=== PATIENT | female | born 1990 | race Caucasian/White ===

== ENCOUNTER 2016-07-03 02:22 | Inpatient (IN) | payer MEDICAID, OTHER ==
[~2016-07-03] VITALS: Ht 157.5 cm; Wt 53.4 kg
[~2016-07-03 02:22] MED LIST: PHEN12.5 PO; Z.0.BCPILL PO
[2016-07-03 03:33] VITALS: BP 135/76; PULSE 94; RESP 18; TEMP 98.2; O2SAT 97
[2016-07-03 03:38] VITALS: BP 135/76; PULSE 94; RESP 18; O2SAT 97
[2016-07-03 03:45] LABS: AUTOMATED NEUTROPHIL # 8.5 TH/MM3 (1.8-7.7); BASOPHIL % 0.4 % (0.0-2.0); EOSINOPHIL % 0.1 % (0.0-4.0); HEMATOCRIT 34.8 % (35.0-46.0); HEMO FLAGS DIFF FINAL; LYMPH % 9.9 % (9.0-44.0); MEAN CELL VOLUME 93.6 FL (80.0-100.0); MEAN CORPUSCULAR HEMOGLOBIN 32.4 PG (27.0-34.0); MEAN CORPUSCULAR HGB CONC 34.6 % (32.0-36.0); MONO % 5.2 % (0.0-8.0); NEUT % 84.4 % (16.0-70.0); PLATELET COUNT 252 TH/MM3 (150-450); RED BLOOD COUNT 3.72 MIL/MM3 (4.00-5.30); RED CELL DISTRIBUTION WIDTH 12.2 % (11.6-17.2)
[2016-07-03] MEDS ORDERED: BUPR300T PO (03:56)
[2016-07-03] MEDS ORDERED: XYRE500S (03:56)
[2016-07-03] MEDS ORDERED: FLUO40CA PO (03:56)
[2016-07-03] MEDS ORDERED: MODA100T9 PO (03:56)
[2016-07-03] MEDS ORDERED: OFFICE MEDICATION (03:56)
[2016-07-03] MEDS ORDERED: NUVI150T2 PO (03:56)
[2016-07-03 04:12] LABS: ANION GAP 8 MEQ/L (5-15); BICARBONATE 25.4 MEQ/L (21.0-32.0); BLOOD UREA NITROGEN 18 MG/DL (7-18); CHLORIDE 106 MEQ/L (98-107); GLOMERULAR FILTRATION RATE 72 ML/MIN (>89); POTASSIUM 4.1 MEQ/L (3.5-5.1); SODIUM (NA) 139 MEQ/L (136-145)
[2016-07-03 04:14] LABS: AMPHETAMINE, URINE NEG (NEG); BARBITURATES, URINE NEG (NEG); COCAINE, URINE NEG (NEG)
[2016-07-03 04:22] LABS: ACETAMINOPHEN LESS THAN 2.0 MCG/ML (10.0-30.0)
--- NOTE | 2016-07-03 05:09 | PD ---
HPI Chief Complaint: Psychiatric Symptoms Time Seen by Provider: 03:31 Travel History International Travel<30 days: No Contact w/Intl Traveler<30days: No Traveled to known affect area: No History of Present Illness HPI 25-year-old female presents under Gonzalez act for abnormal behavior. Patient cannot provide significant history here. Family arrived and states that she has been off of her home medications and been with her boyfriend. Patient denies specific complaints but is difficult to obtain history from [facility] Past Medical History Anxiety: Yes Depression: Yes Diminished Hearing: No Medical other: Yes (narcolepsy) Immunizations Current: Yes ?: Not Past Surgical History Oral Surgery: Yes (wisdom teeth removed) Social History Alcohol Use: No Tobacco Use: No Substance Use: Yes (marijuana) Allergies-Medications (Allergen,Severity, Reaction): Coded Allergies: Amoxicillin (Verified Allergy, Severe, EYES SWELL, 07/03/16) Cultivated Oat Pollen (Verified Allergy, Mild, 07/03/16) Reported Meds & Prescriptions Reported Meds & Active Scripts Active Reported Xyrem Liq (Sodium Oxybate Liq) 500 Mg/Ml Jayna Nuvigil (Armodafinil) 150 Mg Tab 150 Mg PO DAILY Fluoxetine (Fluoxetine HCl) 40 Mg Cap 40 Cap PO DAILY Modafinil 100 Mg Tab 100 Mg PO DAILY Bupropion HCl ER 24 HR (Bupropion HCl) 300 Mg Tab 300 Mg PO DAILY Office Medication (Miscellaneous Medication) Misc Review of Systems Except as stated in HPI: all other systems reviewed are Neg Physical Exam Narrative GENERAL: Well-nourished, well-developed patient. SKIN: Warm and dry. HEAD: Normocephalic and atraumatic. EYES: No injection or drainage. Pupils equal ENT: No nasal drainage noted. NECK: Supple, trachea midline. CARDIOVASCULAR: Regular rate and rhythm RESPIRATORY: No increased effort. No accessory muscle use NEUROLOGICAL: Awake. Motor and sensory grossly within normal limits. Clear slow speech with family Data Data Last Documented VS Vital Signs Date Time Temp Pulse Resp B/P Pulse Ox O2 Delivery O2 Flow Rate FiO2 07/03/16 03:38 94 18 135/76 97 Room Air 07/03/16 03:33 98.2 Orders Tylenol (Acetaminophen) (07/03/16 02:45) Alcohol (Ethanol) (07/03/16 02:45) Basic Metabolic Panel (Bmp) (07/03/16 02:45) Salicylates (Aspirin) (07/03/16 02:45) Complete Blood Count With Diff (07/03/16 02:45) Drug Screen, Random Urine (07/03/16 02:45) Psych Screen (07/03/16 04:28) Labs Laboratory Tests Test 07/03/16 07/03/16 02:45 03:24 White Blood Count 10.0 TH/MM3 Red Blood Count 3.72 MIL/MM3 Hemoglobin 12.0 GM/DL Hematocrit 34.8 % Mean Corpuscular Volume 93.6 FL Mean Corpuscular Hemoglobin 32.4 PG Mean Corpuscular Hemoglobin 34.6 % Concent Red Cell Distribution Width 12.2 % Platelet Count 252 TH/MM3 Mean Platelet Volume 9.7 FL Neutrophils (%) (Auto) 84.4 % Lymphocytes (%) (Auto) 9.9 % Monocytes (%) (Auto) 5.2 % Eosinophils (%) (Auto) 0.1 % Basophils (%) (Auto) 0.4 % Neutrophils # (Auto) 8.5 TH/MM3 Lymphocytes # (Auto) 1.0 TH/MM3 Monocytes # (Auto) 0.5 TH/MM3 Eosinophils # (Auto) 0.0 TH/MM3 Basophils # (Auto) 0.0 TH/MM3 CBC Comment DIFF FINAL Differential Comment Sodium Level 139 MEQ/L Potassium Level 4.1 MEQ/L Chloride Level 106 MEQ/L Carbon Dioxide Level 25.4 MEQ/L Anion Gap 8 MEQ/L Blood Urea Nitrogen 18 MG/DL Creatinine 0.95 MG/DL Estimat Glomerular Filtration 72 ML/MIN Rate Random Glucose 120 MG/DL Calcium Level 9.0 MG/DL Salicylates Level 2.3 MG/DL Acetaminophen Level LESS THAN 2.0 MCG/ML Ethyl Alcohol Level LESS THAN 3 MG/DL Urine Opiates Screen NEG Urine Barbiturates Screen NEG Urine Amphetamines Screen NEG Urine Benzodiazepines Screen NEG Urine Cocaine Screen NEG Urine Cannabinoids Screen POS MDM Medical Decision Making Medical Screen Exam Complete: Yes Emergency Medical Condition: Yes Medical Record Reviewed: Yes (past history confirm) Interpretation(s) CBC & BMP Diagram 07/03/16 02:45 EKG is sinus rhythm at 95 without STEMI criteria Differential Diagnosis Substance abuse, medication effect, electrolyte abnormality, coingestion.... Narrative Course Will check blood work for medical clearance and reevaluate Blood work without emergent findings medically cleared at 4:30 AM for psychiatric disposition Shantel Rangel MD Jul 03, 2016 05:09
[2016-07-03] MEDS ORDERED: hydrOXYzine PAMOATE 25 MG CAP PO ONE (05:45)
[2016-07-03 06:23] VITALS: BP 110/76; PULSE 99; RESP 18; O2SAT 98
[2016-07-03 10:05] VITALS: BP 149/79; PULSE 93; RESP 18
--- NOTE | 2016-07-03 14:53 | EKG ---
Date Performed: 07/03/2016 Time Performed: 03:00:36 PTAGE: 25 years EKG: Sinus rhythm WITH SHORT OH INTERVAL Nonspecific ST and T wave abnormalities BORDERLINE ECG NO PREVIOUS TRACING DOCTOR: Dieudonne Franco Interpretating Date/Time 07/03/2016 14:51:19
[2016-07-03 18:19] VITALS: BP 108/55; PULSE 74; RESP 18
[2016-07-03] MEDS ORDERED: LORazepam 2 MG/ML VIAL IM PRN (18:30)
[2016-07-03] MEDS ORDERED: ACETAMINOPHEN 325 MG TAB PO PRN (18:30)
[2016-07-03] MEDS ORDERED: diphenhydrAMINE HCL 50 MG CAP PO PRN (18:30)
[2016-07-03] MEDS ORDERED: LORazepam 2 MG/ML VIAL - age > 65 yrs IM PRN (18:30)
[2016-07-03] MEDS ORDERED: LORazepam 0.5 MG TAB age > 65 yrs PO PRN (18:30)
[2016-07-03] MEDS ORDERED: diphenhydrAMINE HCL 50 MG/ML VIAL IM PRN (18:30)
[2016-07-03] MEDS ORDERED: MAGNESIUM HYDROXIDE SUSP 30 ML CUP PO PRN (18:30)
[2016-07-03] MEDS ORDERED: ALUMINUM/MAGNESIUM/SIMETH 30 ML CUP PO PRN (18:30)
[2016-07-03] MEDS ORDERED: LORazepam 1 MG TAB PO PRN (18:30)
[2016-07-03 18:52] LABS: BETA HCG QUANT LESS THAN 1 MIU/ML (0-5)
[2016-07-03 20:21] VITALS: BP 123/80; PULSE 88; RESP 20; TEMP 98.6; O2SAT 97
[2016-07-03] MEDS: QUEtiapine FUMARATE 100 MG TAB PO SCH (21:15)
[2016-07-04 05:47] VITALS: BP 115/70; PULSE 71; RESP 16; TEMP 97.5; O2SAT 98
[2016-07-04 07:34] LABS: AUTOMATED NEUTROPHIL # 2.9 TH/MM3 (1.8-7.7); BASOPHIL % 0.5 % (0.0-2.0); EOSINOPHIL # 0.1 TH/MM3 (0-0.4); EOSINOPHIL % 0.8 % (0.0-4.0); HEMATOCRIT 37.1 % (35.0-46.0); HEMO FLAGS DIFF FINAL; LYMPH % 47.8 % (9.0-44.0); LYMPHOCYTE # 3.3 TH/MM3 (1.0-4.8); MEAN CELL VOLUME 94.3 FL (80.0-100.0); MEAN CORPUSCULAR HEMOGLOBIN 31.5 PG (27.0-34.0); MEAN CORPUSCULAR HGB CONC 33.4 % (32.0-36.0); MONO % 9.3 % (0.0-8.0); NEUT % 41.6 % (16.0-70.0); PLATELET COUNT 241 TH/MM3 (150-450); RED BLOOD COUNT 3.93 MIL/MM3 (4.00-5.30); RED CELL DISTRIBUTION WIDTH 12.7 % (11.6-17.2); WHITE BLOOD COUNT 6.9 TH/MM3 (4.0-11.0)
[2016-07-04 07:58] LABS: ANION GAP 8 MEQ/L (5-15); BICARBONATE 27.2 MEQ/L (21.0-32.0); BLOOD UREA NITROGEN 10 MG/DL (7-18); CHLORIDE 109 MEQ/L (98-107); GLOMERULAR FILTRATION RATE 77 ML/MIN (>89); POTASSIUM 3.6 MEQ/L (3.5-5.1); SODIUM (NA) 144 MEQ/L (136-145)
[2016-07-04 08:08] LABS: HDL CHOLESTEROL 63.9 MG/DL (40.0-60.0); LDL CHOLESTEROL 108 MG/DL (0-99)
[2016-07-04] MEDS: QUEtiapine FUMARATE 100 MG TAB PO SCH ×2 (08:37→21:06)
[2016-07-04] MEDS: REMOVE OLD NICOTINE PATCH T-DERMAL SCH ×2 (08:37→09:00)
[2016-07-04] MEDS: NICOTINE 21 MG/24 HR PATCH T-DERMAL SCH ×2 (08:37→09:00)
--- NOTE | 2016-07-04 10:11 | HHI.HP ---
Reason for Admit/HPI Reason for Admission Psychotic and unable to care for self. Admission Status: Gonzalez Act History of Present Illness This is the first psychiatric hospitalization for this 25-year-old female who is known to this physician. She has been treated in the past with antidepressant medicine and anti-anxiety medicine, by her primary care physician. However, at the time of this evaluation, the patient is grossly psychotic, disorganized and disoriented. She is unable to describe the date, time, situation, etc. There is some history that her boyfriend may have given her ecstasy. She does admit at this point to smoking marijuana. She was repeatedly disrobing at home and in the emergency department. She recognizes this physician but is unable to provide any other cogent information or history. She is at extreme risk for self neglect due to her disinhibition's and floridly psychotic and disorganized thinking. Of note, the patient's mother resides in care home after murdering the patient's disabled sister some years ago. Admitting Diagnosis: (1) Psychotic disorder ICD Code: F29 Review of Systems All other systems negative?: Yes Psych & Development History Hx of Psych Illness History Of Psychiatric: Yes History Psychiatric Illness: Mood Disorder Family History Of Psychiatric: Yes Family Hx Psych Illness Type: Mood Disorder Mental Examination Pt Able to Contract for Safety: No Behavioral/Attitude: Impulsive Speech: Other Orientation: Person Memory: Unremarkable Impulse Control Description: Poor Acts Impulsively: Yes Thought Process: Loose Association Thought Content: Bizarre Thinking, Derealization Attention and Concentration: Easily Distracted Suicidal Ideation: No Previous Suicide Attempts: No Homicidal Ideation: No Previous Homicide Attempts: No Insight: Poor Judgement: Unrealistic Reliability: Adequate Affect: Good Mood: Appropriate Cognition: Alert, Oriented x3 Motor Activity: Normal gait Physical Exam Physical Exam GENERAL: SKIN: Warm and dry. HEAD: Atraumatic. Normocephalic. EYES: Pupils equal and round. No scleral icterus. No injection or drainage. ENT: No nasal bleeding or discharge. Mucous membranes pink and moist. NECK: Trachea midline. No JVD. CARDIOVASCULAR: Regular rate and rhythm. RESPIRATORY: No accessory muscle use. Clear to auscultation. Breath sounds equal bilaterally. GASTROINTESTINAL: Abdomen soft, non-tender, nondistended. Hepatic and splenic margins not palpable. MUSCULOSKELETAL: Extremities without clubbing, cyanosis, or edema. No obvious deformities. NEUROLOGICAL: Awake and alert. No obvious cranial nerve deficits. Motor grossly within normal limits. Five out of 5 muscle strength in the arms and legs. Normal speech. PSYCHIATRIC: Appropriate mood and affect; insight and judgment normal. Vital Signs Vital Signs Date Time Temp Pulse Resp B/P Pulse Ox O2 Delivery O2 Flow Rate FiO2 07/04/16 05:47 97.5 71 16 115/70 98 07/03/16 20:21 98.6 88 20 123/80 97 07/03/16 18:19 74 18 108/55 Room Air 07/03/16 10:05 93 18 149/79 Room Air Coded Allergies: Amoxicillin (Verified Allergy, Severe, EYES SWELL, 07/03/16) Cultivated Oat Pollen (Verified Allergy, Mild, 07/03/16) Substance Abuse Substance Abuse Substance Abuse: Yes Marijuana Frequency: Daily Assessment/Plan Estimated Length of Stay: 3-5 Days Diagnosis: Plan * * Patient will continue to be observed and evaluated by staff and this physician. This physician spoke with the patient's legal guardian, who is at a loss to explain this psychotic episode. Patient will be started on Seroquel 100 mg twice a day and at bedtime to assist with tranquilization and sleep. Patient tells this physician she has not slept for 2 days. She is undergoing a toxicology screen to determine what if any drugs have been ingested. She is also going to be engaged in individual and family therapy as well as group therapy. An EKG is being ordered to assess for psychotropic medication issues. It is anticipated she'll be in the hospital for 3-5 days. Goals * Evaluate symptoms of current psychiatric problem(s) * Stabilize behaviors and improve functionality * Diminish relationship conflicts * Improve academic performance Discharge Criteria * Denies suicidal ideation * Denies homicidal ideation * No evidence of psychosis H&P Billing Codes Initial Hospital Care(50 min): Yes Jamil Ramon MD Jul 04, 2016 10:11
[2016-07-04 13:01] LABS: HEMOGLOBIN A1a 0.9 %; HEMOGLOBIN A1b 0.7 %; HEMOGLOBIN Ao 87.6 %; HEMOGLOBIN F 0.8 %; HEMOGLOBIN LA1C 1.5 %; HEMOGLOBIN P3 3.2 %
[2016-07-04 20:29] VITALS: BP 114/60; PULSE 93; RESP 16; TEMP 97.2; O2SAT 100
[2016-07-05 06:20] VITALS: BP 110/63; PULSE 87; RESP 18; TEMP 98.7; O2SAT 100
[2016-07-05] MEDS: QUEtiapine FUMARATE 100 MG TAB PO SCH ×2 (08:44→21:04)
[2016-07-05] MEDS: NICOTINE 21 MG/24 HR PATCH T-DERMAL SCH (08:46)
[2016-07-05] MEDS: REMOVE OLD NICOTINE PATCH T-DERMAL SCH (09:00)
[2016-07-05 18:48] VITALS: BP 131/81; PULSE 108; RESP 18; TEMP 97.3; O2SAT 99
[2016-07-06 06:11] VITALS: BP 120/80; PULSE 72; RESP 18; TEMP 98.1; O2SAT 98
[2016-07-06] MEDS: QUEtiapine FUMARATE 100 MG TAB PO SCH ×2 (08:51→20:04)
[2016-07-06] MEDS: REMOVE OLD NICOTINE PATCH T-DERMAL SCH (08:53)
[2016-07-06 18:30] VITALS: BP 112/81; PULSE 91; RESP 18; TEMP 97.6; O2SAT 99
[2016-07-06] MEDS ORDERED: SERO100T PO (19:14)
--- NOTE | 2016-07-06 19:20 | HHI.DS ---
Psychiatry Discharge Summary Pt able to contract for safety: Yes Legal Hide Cleaner(s): Biological Parents Health Care Surrogate: No Admission Admission Date Jul 03, 2016 at 17:23 Admission Diagnosis: (1) Psychotic disorder ICD Code: F29 Brief History This is the first psychiatric hospitalization for this 25-year-old female who is known to this physician. She has been treated in the past with antidepressant medicine and anti-anxiety medicine, by her primary care physician. However, at the time of this evaluation, the patient is grossly psychotic, disorganized and disoriented. She is unable to describe the date, time, situation, etc. There is some history that her boyfriend may have given her ecstasy. She does admit at this point to smoking marijuana. She was repeatedly disrobing at home and in the emergency department. She recognizes this physician but is unable to provide any other cogent information or history. She is at extreme risk for self neglect due to her disinhibition's and floridly psychotic and disorganized thinking. Of note, the patient's mother resides in long-term after murdering the patient's disabled sister some years ago. Tobacco Use In Past 30 Days: No Tobacco Past 30 Days Alcohol Use: Never Hospital Course Initially very confused and psychotic. Appears to have been result of drug intoxication. Cleared to signif degree and asking for discharge with meds. Results Blood Pressure / see nurses. Vital Signs Date Time Temp Pulse Resp B/P Pulse Ox O2 Delivery O2 Flow Rate FiO2 07/06/16 18:30 97.6 91 18 112/81 99 07/03/16 18:19 Room Air Laboratory Tests Test 07/04/16 06:07 Red Blood Count 3.93 MIL/MM3 (4.00-5.30) Lymphocytes (%) (Auto) 47.8 % (9.0-44.0) Monocytes (%) (Auto) 9.3 % (0.0-8.0) Chloride Level 109 MEQ/L (98-107) Estimat Glomerular Filtration 77 ML/MIN (>89) Rate Random Glucose 58 MG/DL (74-106) LDL Cholesterol 108 MG/DL (0-99) HDL Cholesterol 63.9 MG/DL (40.0-60.0) Laboratory Results Test 07/04/16 06:07 Hemoglobin A1c 4.7 % (4.3-6.0) Triglycerides Level 67 MG/DL (42-150) Cholesterol Level 185 MG/DL (120-200) LDL Cholesterol 108 MG/DL (0-99) HDL Cholesterol 63.9 MG/DL (40.0-60.0) Laboratory Tests Test 07/03/16 07/03/16 07/04/16 02:45 03:24 06:07 Human Chorionic Gonadotropin, LESS THAN 1 Quant MIU/ML Salicylates Level 2.3 MG/DL Acetaminophen Level LESS THAN 2.0 MCG/ML Ethyl Alcohol Level LESS THAN 3 MG/DL Urine Opiates Screen NEG Urine Barbiturates Screen NEG Urine Amphetamines Screen NEG Urine Benzodiazepines Screen NEG Urine Cocaine Screen NEG Urine Cannabinoids Screen POS White Blood Count 6.9 TH/MM3 Red Blood Count 3.93 MIL/MM3 Hemoglobin 12.4 GM/DL Hematocrit 37.1 % Mean Corpuscular Volume 94.3 FL Mean Corpuscular Hemoglobin 31.5 PG Mean Corpuscular Hemoglobin 33.4 % Concent Red Cell Distribution Width 12.7 % Platelet Count 241 TH/MM3 Mean Platelet Volume 9.3 FL Neutrophils (%) (Auto) 41.6 % Lymphocytes (%) (Auto) 47.8 % Monocytes (%) (Auto) 9.3 % Eosinophils (%) (Auto) 0.8 % Basophils (%) (Auto) 0.5 % Neutrophils # (Auto) 2.9 TH/MM3 Lymphocytes # (Auto) 3.3 TH/MM3 Monocytes # (Auto) 0.6 TH/MM3 Eosinophils # (Auto) 0.1 TH/MM3 Basophils # (Auto) 0.0 TH/MM3 CBC Comment DIFF FINAL Differential Comment Sodium Level 144 MEQ/L Potassium Level 3.6 MEQ/L Chloride Level 109 MEQ/L Carbon Dioxide Level 27.2 MEQ/L Anion Gap 8 MEQ/L Blood Urea Nitrogen 10 MG/DL Creatinine 0.89 MG/DL Estimat Glomerular Filtration 77 ML/MIN Rate Random Glucose 58 MG/DL Hemoglobin A1c 4.7 % Calcium Level 8.8 MG/DL Triglycerides Level 67 MG/DL Cholesterol Level 185 MG/DL LDL Cholesterol 108 MG/DL HDL Cholesterol 63.9 MG/DL Cholesterol/HDL Ratio 2.89 RATIO Thyroid Stimulating Hormone 0.489 uIU/ML 3rd Gen Procedures during visit: No Pending results at discharge: No Mental Status Exam Behavioral/Attitude: Cooperative Speech: Unremarkable Orientation: Person, Place, Time, Date, Situation Memory: Unremarkable Impulse Control Description: Good Acts Impulsively: No Thought Process: Goal Directed Thought Content: Unremarkable, Bizarre Thinking Attention and Concentration: Good Suicidal Ideation: No Previous Suicide Attempts: No Homicidal Ideation: No Previous Homicide Attempts: No Insight: Fair Judgement: WNL Reliability: Adequate Affect: Good Mood: Appropriate Cognition: Alert, Oriented x3 Motor Activity: Normal gait Discharge Discharge Date: Jul 06, 2016 Discharge Diagnosis: (1) Psychotic disorder Diagnosis: Principal ICD Code: F29 Pt Condition on Discharge: Stable Discharge Disposition: Discharge Home Release Patient to Custody of: Parent Discharge Instructions Diet Instructions: Regular Diet Activity Instructions: Regular-No Restrictions Other Activity Instructions: 24 hr supervision for next week. No illicit drug use. Discharge Time <= 30 minutes Discharge/Advance Care Plan Health Problems: (1) Psychotic disorder Goals to promote your health * To maintain your child's health at optimal level * To prevent worsening of your child's condition * To prevent complications for your child Directions to meet your goals Give your child's medications as prescribed Follow your child's dietary instructions Follow activity as directed for your child Keep your child's appointments as scheduled Keep your child's immunizations and boosters up to date If symptoms worsen call your child's PCP/Dry Box Tender, if no PCP/ Dry Box Tender go to Urgent Care Center or Emergency Room For 16/01 questions related to your child's inpatient stay or results of her tests pending at discharge, please contact Dr. Jamil Ramon at Keep child away from second hand smoke Problem Qualifiers (1) Psychotic disorder: Qualified Code: F29 - Psychosis, unspecified psychosis type Jamil Ramon MD Jul 06, 2016 19:20
[2016-07-07 06:13] VITALS: BP 104/58; PULSE 60; RESP 16; TEMP 97.8
[2016-07-07] MEDS: QUEtiapine FUMARATE 100 MG TAB PO SCH (09:37)
== END 2016-07-07 11:15 | disposition home or self-care (01) | DRG 885 ==
LOC: NEPC 02:22 → NEDA 17:23 → H270 19:24 → H260 07-05 21:20
PROVIDERS: ADMIT Psychiatry & Neurology Psychiatry; ATTEND Psychiatry & Neurology Psychiatry
DX: F29 Unspecified psychosis not due to a substance or known physiological condition (principal); F12.10 Cannabis abuse, uncomplicated
CPT/HCPCS: 80048; 80061; 80307; 80320; 80329; 83036; 84443; 84702; 85025; 93005; 99284; G0480; Q0177